=== PATIENT | female | born 1965 | race Hispanic/Latino ===

== ENCOUNTER 2021-03-22 18:34 | Emergency (ER) | payer MEDICAID ==
[2021-03-22] MEDS ORDERED: oxyCODONE /ACETAMINOPHEN 5-325MG TAB PO ONE (20:38)
[2021-03-22] MEDS ORDERED: predniSONE 20 MG TAB PO ONE (20:38)
[2021-03-22] MEDS ORDERED: ONDANSETRON 4 MG ODT TAB PO ONE (20:38)
--- NOTE | 2021-03-22 21:34 | XRay Report ---
EXAMINATION: XR hip 2-3V RT, INDICATION / CLINICAL INFORMATION: PAIN COMPARISON: None available. FINDINGS: BONES / JOINT(S): No acute fracture or subluxation. SOFT TISSUES: No significant abnormality. ADDITIONAL FINDINGS: None. IMPRESSION: No acute process. Signer Name: Roberto Ortiz MD Signed: 03/22/2021 9:30 PM Workstation Name: [id number]
--- NOTE | 2021-03-22 21:35 | XRay Report ---
RIGHT KNEE 3 VIEW(S) INDICATION / CLINICAL INFORMATION: PAIN COMPARISON: None available. FINDINGS: BONES / JOINT(S): No acute fracture or subluxation. Mild to moderate tricompartmental osteoarthritis of the knee. No significant joint effusion. SOFT TISSUES: No significant abnormality. ADDITIONAL FINDINGS: None. IMPRESSION: No acute osseous findings in the right knee. Signer Name: Roberto Ortiz MD Signed: 03/22/2021 9:30 PM Workstation Name: [id number]
--- NOTE | 2021-03-22 21:36 | XRay Report ---
Lumbar spine, 3 views HISTORY: Lumbar pain COMPARISON: None FINDINGS: There is mild right convex curvature of the lumbar spine. Alignment is normal. Severe disc space height loss at L5-S1, mild to moderate at other levels. Vertebral body heights are intact. No e vidence of fracture. IMPRESSION: Moderate lower lumbar spondylosis. No acute process. Signer Name: Roberto Ortiz MD Signed: 03/22/2021 9:31 PM Workstation Name: [id number]
--- NOTE | 2021-03-22 21:51 | Emergency Department Report ---
ED Back Pain/Injury HPI - General Chief Complaint: Back Pain/Injury Stated Complaint: BACK PAIN Source: patient, EMS Limitations: No Limitations - History of Present Illness Initial Comments: Patient is a 55-year-old female with a history of chronic low back pain due to degenerative lumbar disc disease, chronic osteoarthritis of the knees bilaterally who presented to the ED with complaint of acute exacerbation of her chronic low back pain after she slipped and fell down at a hotel bathtub about 3 months ago, and that the pain has been persistent, constant and especially worse with movement. Patient states that in the last 3 days, she has not been able to move much because of worsening pain. Patient states that she has been taking jqtr-orq-[id number] medications for pain having exhausted all her previously prescribed narcotic pain medications from pain clinic that she used to go to for her chronic back pain. Patient stated that she has previously taken Percocet 10 mg - 325 mg, MS Contin, gabapentin 800 mg for her chronic pain. Patient denies nausea and vomiting, chest pain, shortness of breath, heavy lifting, dizziness, syncope, seizures, dysuria, urinary frequency and urgency, fever, chills, abdominal pain, nausea and vomiting, vaginal bleeding, hematuria, numbness and tingling or weakness of lower extremities bilaterally or change in vision. MD Complaint: back pain, fall, other (Right hip and right knee pain) -: Gradual, month(s) (3) Similar Symptoms Previously: Yes (Chronic low back pain and chronic osteoarthritis) Place: home Radiation: right leg Severity: severe Severity scale (0 -10): 8 Quality: sharp, aching Consistency: constant Improves With: none Worsens With: movement, sitting upright, walking Context: turning/twisting, fall Associated Symptoms: denies other symptoms. denies: confusion, weakness, chest pain, difficulty walking, cough, difficulty urinating, diaphoresis, incontinence, constipation, headaches, abdominal pain, loss of appetite, malaise, nausea/vomiting, rash, seizure, shortness of breath, syncope Treatments Prior to Arrival: acetaminophen - Related Data Previous Rx's Medication Instructions Recorded Last Taken Type Acetaminophen [Tylenol] 500 mg PO Q6HR PRN #60 tablet 03/22/21 Unknown Rx Gabapentin 400 mg PO Q8HR #90 capsule 03/22/21 Unknown Rx methOCARBAMOL [Robaxin TAB] 500 mg PO BID #60 tab 03/22/21 Unknown Rx predniSONE [Deltasone] 20 mg PO QDAY #60 tab 03/22/21 Unknown Rx traMADoL [Ultram] 50 mg PO Q6HR PRN #10 tablet 03/22/21 Unknown Rx Allergies Allergy/AdvReac Type Severity Reaction Status Date / Time naproxen Allergy Unknown Verified 03/22/21 18:37 Penicillins Allergy Unknown Verified 03/22/21 18:37 ED Review of Systems ROS: Stated complaint: BACK PAIN Other details as noted in HPI Constitutional: denies: chills, fever Eyes: denies: eye pain, eye discharge, vision change ENT: denies: ear pain, throat pain Respiratory: denies: cough, shortness of breath, wheezing Cardiovascular: denies: chest pain, palpitations Endocrine: no symptoms reported Gastrointestinal: denies: abdominal pain, nausea, diarrhea Genitourinary: denies: urgency, dysuria, discharge Musculoskeletal: back pain (Low back pain), arthralgia (Right knee and right hip pain), myalgia. denies: joint swelling Skin: denies: rash, lesions Neurological: denies: headache, weakness, paresthesias Psychiatric: denies: anxiety, depression Hematological/Lymphatic: denies: easy bleeding, easy bruising ED Past Medical Hx - Past Medical History Previous Medical History?: Yes Hx Arthritis: Yes Additional medical history: Chronic low back pain - Medications Home Medications: Home Medications Medication Instructions Recorded Confirmed Last Taken Type Acetaminophen [Tylenol] 500 mg PO Q6HR PRN #60 tablet 03/22/21 Unknown Rx Gabapentin 400 mg PO Q8HR #90 capsule 03/22/21 Unknown Rx methOCARBAMOL [Robaxin TAB] 500 mg PO BID #60 tab 03/22/21 Unknown Rx predniSONE [Deltasone] 20 mg PO QDAY #60 tab 03/22/21 Unknown Rx traMADoL [Ultram] 50 mg PO Q6HR PRN #10 tablet 03/22/21 Unknown Rx ED Physical Exam - General Limitations: No Limitations General appearance: alert, in no apparent distress - Head Head exam: Present: atraumatic, normocephalic, normal inspection - Eye Eye exam: Present: normal appearance, PERRL, EOMI Pupils: Present: normal accommodation - ENT ENT exam: Present: normal exam, normal orophraynx, mucous membranes moist, TM's normal bilaterally, normal external ear exam - Neck Neck exam: Present: normal inspection, full ROM - Respiratory Respiratory exam: Present: normal lung sounds bilaterally. Absent: respiratory distress, wheezes, rales, stridor, chest wall tenderness, accessory muscle use, decreased breath sounds - Cardiovascular Cardiovascular Exam: Present: regular rate, normal rhythm, normal heart sounds. Absent: systolic murmur, diastolic murmur, rubs, gallop - GI/Abdominal GI/Abdominal exam: Present: soft, normal bowel sounds. Absent: distended, tenderness, guarding, hyperactive bowel sounds, hypoactive bowel sounds, organ omegaly - Extremities Exam Extremities exam: Present: normal inspection, full ROM, tenderness (Palpable right hip and right knee tenderness), normal capillary refill. Absent: pedal edema, joint swelling, calf tenderness - Back Exam Back exam: Present: normal inspection, full ROM, tenderness (Palpable lumbosacral paraspinal musculoskeletal tenderness; palpable lumbar vertebral tenderness), muscle spasm, paraspinal tenderness, vertebral tenderness. Absent: CVA tenderness (R), CVA tenderness (L), rash noted - Neurological Exam Neurological exam: Present: alert, oriented X3, CN II-XII intact, reflexes normal, other (Gait not tested, due to patient pain) - Psychiatric Psychiatric exam: Present: normal affect, normal mood - Skin Skin exam: Present: warm, dry, intact, normal color. Absent: rash, cyanosis, erythema, urticaria ED Course Vital Signs 03/22/21 03/22/21 18:34 20:51 Temperature 98.1 F Pulse Rate 92 H Respiratory 18 16 Rate Blood Pressure 142/86 [Left] O2 Sat by Pulse 98 Oximetry ED Medical Decision Making - Radiology Data Radiology results: report reviewed, image reviewed [address] [address] XRay Report Signed Patient: RATNA CARDONA MR#: [id number] : 1965 Acct:[id number] Age/Sex: 55 / F ADM Date: 03/22/21 Loc: ED Attending Dr: Ordering Physician: KURT POLLACK Date of Service: 03/22/21 Procedure(s): XR spine lumbosacral 2-3V Accession Number(s): [id number] cc: KURT POLLACK Fluoro Time In Minutes: Lumbar spine, 3 views HISTORY: Lumbar pain COMPARISON: None FINDINGS: There is mild right convex curvature of the lumbar spine. Alignment is normal. Severe disc space height loss at L5-S1, mild to moderate at other levels. Vertebral body heights are intact. No evidence of fracture. IMPRESSION: Moderate lower lumbar spondylosis. No acute process. Signer Name: Pam Hicks MD Signed: 03/22/2021 9:31 PM Workstation Name: [id number] Transcribed By: JS Dictated By: PAM HICKS MD Electronically Authenticated By: PAM HICKS MD Signed Date/Time: 03/22/212130 DD/ 29 TD/TT: [facility] [address] [place] [address] XRay Report Signed Patient: RATNA CARDONA MR#: [id number] : 1965 Acct:[id number] Age/Sex: 55 / F ADM Date: 03/22/21 Loc: ED Attending Dr: Ordering Physician: KURT POLLACK Date of Service: 03/22/21 Procedure(s): XR knee 3V RT Accession Number(s): [id number] cc: KURT POLLACK Fluoro Time In Minutes: RIGHT KNEE 3 VIEW(S) INDICATION / CLINICAL INFORMATION: PAIN COMPARISON: None available. FINDINGS: BONES / JOINT(S): No acute fracture or subluxation. Mild to moderate tricompartmental osteoarthritis of the knee. No significant joint effusion. SOFT TISSUES: No significant abnormality. ADDITIONAL FINDINGS: None. IMPRESSION: No acute osseous findings in the right knee. Signer Name: Pam Hicks MD Signed: 03/22/2021 9:30 PM Workstation Name: [id number] Transcribed By: TONY Dictated By: PAM HICKS MD Electronically Authenticated By: PAM HICKS MD Signed Date/Time: 03/22/212129 DD/ 29 TD/TT: [address] [address] XRay Report Signed Patient: RATNA CARDONA MR#: [id number] : 1965 Acct:[id number] Age/Sex: 55 / F ADM Date: 03/22/21 Loc: ED Attending Dr: Ordering Physician: KURT POLLACK Date of Service: 03/22/21 Procedure(s): XR hip 2-3V RT Accession Number(s): [id number] cc: KURT POLLACK Fluoro Time In Minutes: EXAMINATION: XR hip 2-3V RT, INDICATION / CLINICAL INFORMATION: PAIN COMPARISON: None available. FINDINGS: BONES / JOINT(S): No acute fracture or subluxation. SOFT TISSUES: No significant abnormality. ADDITIONAL FINDINGS: None. IMPRESSION: No acute process. Signer Name: Pam Hicks MD Signed: 03/22/2021 9:30 PM Workstation Name: [id number] Transcribed By: TONY Dictated By: PAM HICKS MD Electronically Authenticated By: PAM HICKS MD Signed Date/Time: 03/22/212129 DD/ 28 TD/TT: - Medical Decision Making This is a 55-year-old female with a history of chronic low back pain due to degenerative lumbar disc disease, chronic osteoarthritis of the knees bilaterally who presented to the ED with complaint of acute exacerbation of her chronic low back pain after she slipped and fell down at a hotel bathtub about 3 months ago, and that the pain has been persistent, constant and especially worse with movement. Patient states that in the last 3 days, she has not been able to move much because of worsening pain. Patient states that she has been taking ahst-jrz-cpzotgy medications for pain having exhausted all her previously prescribed narcotic pain medications from pain clinic that she used to go to for her chronic back pain. Patient stated that she has previously taken Percocet 10 mg - 325 mg, MS Contin, gabapentin 800 mg for her chronic pain. In the ED, patient is alert and oriented x3 and is not in any distress. Patient was treated in the ED for pain, and right knee x-ray showed mild to moderate tricompartmental osteoarthritis of the knee. No significant joint effusion. The L-spine x-ray showed a mild right convex curvature of the lumbar spine. Alignment is normal. Severe disc space height loss at L5-S1, mild to moderate at other levels. Vertebral body heights are intact. No evidence of fracture. Right hip x-ray showed no acute abnormalities, fractures or subluxations. Patient was discharged home on medications and advised to follow-up with her primary care physician in 5 to 7 days for reevaluation. Patient was advised to return to the ED immediately if your symptoms get worse. - Differential Diagnosis Chronic pain; chronic osteoarthritis, chronic back pain; muscle spasm Critical care attestation.: If time is entered above; I have spent that time in minutes in the direct care of this critically ill patient, excluding procedure time. ED Disposition Clinical Impression: Spasm of muscle of lower back, Acute exacerbation of chronic low back pain, Chronic osteoarthritis Disposition: 01 HOME / SELF CARE / HOMELESS Is pt being admited?: No Does the pt Need Aspirin: No Condition: Stable Instructions: Muscle Cramps and Spasms, Dlhz-rx-Ybjo, Chronic Back Pain, Cnzl-tk-Reya, Arthritis, Azga-or-Fkkv Additional Instructions: All imaging reports were reviewed and are all nonactionable except for chronic degenerative lumbar disc disease as well as chronic degenerative joint disease of the right knee. There is no acute fractures or subluxations. Therefore take medications with food, drink plenty fluids and follow-up with your primary care physician in 7 to 10 days for reevaluation. Return to the ED immediately if symptoms get worse. Prescriptions: Acetaminophen [Tylenol] 500 mg PO Q6HR PRN #60 tablet PRN Reason: Pain , Severe (7-10) predniSONE [Deltasone] 20 mg PO QDAY #60 tab Gabapentin 400 mg PO Q8HR #90 capsule methOCARBAMOL [Robaxin TAB] 500 mg PO BID #60 tab traMADoL [Ultram] 50 mg PO Q6HR PRN #10 tablet PRN Reason: Pain Referrals: [facility] [Provider Group] - 7-10 days Time of Disposition: 21:57 Print Language: MONTENEGRIN
[2021-03-22 23:04] VITALS: BP 153/87
== END 2021-03-22 22:58 | disposition home or self-care (01) ==
LOC: ED 18:34
DX: M62.830 Muscle spasm of back (principal); M54.50 Low back pain, unspecified; M19.90 Unspecified osteoarthritis, unspecified site; Z88.6 Allergy status to analgesic agent; Z88.0 Allergy status to penicillin
CPT/HCPCS: 72100; J3490; J7512; Q0162

== ENCOUNTER 2021-03-23 01:55 | Inpatient (IN) | payer MEDICAID ==
[2021-03-23] MEDS ORDERED: ASPIRIN 325 MG TAB PO ONE (02:08)
[2021-03-23 02:55] LABS: Basophils % (Auto) 0.2 % (0.0-1.8); Eosinophils % (Auto) 0.2 % (0.0-4.3); Hematocrit 44.3 % (30.3-42.9); Hemoglobin 14.3 gm/dl (10.1-14.3); Lymphocytes # (Auto) 1.2 K/mm3 (1.2-5.4); Lymphocytes % (Auto) 12.3 % (13.4-35.0); Mean Corpuscular HGB Conc 32 % (30-34); Mean Corpuscular Volume 90 fl (79-97); Monocytes # (Auto) 0.1 K/mm3 (0.0-0.8); Platelet Count 285 K/mm3 (140-440); Red Blood Count 4.93 M/mm3 (3.65-5.03)
--- NOTE | 2021-03-23 03:04 | XRay Report ---
CHEST 2 VIEWS INDICATION / CLINICAL INFORMATION: CHEST PAIN. COMPARISON: None available. FINDINGS: SUPPORT DEVICES: None. HEART / MEDIASTINUM: No significant abnormality. LUNGS / PLEURA: No acute airspace disease. Lungs are slightly hyperinflated. No pneumothorax. ADDITIONAL FINDINGS: No significant additional findings. IMPRESSION: 1. Hyperinflated lungs but no acute findings. Signer Name: Reynaldo Hendrickson MD Signed: 03/23/2021 3:00 AM Workstation Name: [id number]
[2021-03-23 03:09] LABS: Alanine Aminotransferase 74 units/L (7-56); Blood Urea Nitrogen 11 mg/dL (7-17); Calcium 9.1 mg/dL (8.4-10.2); Hemolysis Index 4
[2021-03-23 03:10] LABS: BUN/Creatinine Ratio 18
[2021-03-23] MEDS ORDERED: ONDANSETRON 4 MG ODT TAB PO ONE (03:18)
[2021-03-23] MEDS ORDERED: HYDROmorphone 1 MG/1 ML INJ IM ONE (03:18)
[2021-03-23] MEDS ORDERED: GABAPENTIN 300 MG CAP PO ONE (03:19)
--- NOTE | 2021-03-23 04:01 | Cat Scan Report ---
CT LUMBAR SPINE WITHOUT CONTRAST INDICATION / CLINICAL INFORMATION: back pain. TECHNIQUE: Axial CT images were obtained through the lumbar spine. Sagittal and coronal reformatted i mages were produced. All CT scans at this location are performed using CT dose reduction for ALARA by means of automated exposure control. COMPARISON: Radiograph dated 03/22/21 FINDINGS: VERTEBRAE: No significant abnormality. ALIGNMENT: No significant abnormality. DISC SPACES: Moderate discogenic spondylosis and endplate sclerosis at L5-S1. Mild circumferential / posterior disc bulges at L2-3, L3-4, and L4-5. FACET JOINTS: No significant abnormality. SPINAL CANAL: No significant abnormality. SACRUM:No significant abnormality of the visualized sacrum. PARASPINAL SOFT TISSUES: No significant abnormality. ADDITIONAL FINDINGS: None. IMPRESSION: 1. No acute abnormality. 2. Moderate discogenic spondylosis at L5-S1. 3. Mild multilevel circumferential/posterior disc bulges. Signer Name: Reynaldo Hendrickson MD Signed: 03/23/2021 3:57 AM Workstation Name: [id number]
--- NOTE | 2021-03-23 04:27 | Emergency Department Report ---
ED Chest Pain HPI - General Chief Complaint: Chest Pain Stated Complaint: CHESTPAIN Time Seen by Provider: 03/23/21 02:48 Source: patient Mode of arrival: Wheelchair Limitations: No Limitations - History of Present Illness Initial Comments: 55-year female with a history of chronic back pain secondary to multiple herniated disc and osteoarthritis presents to the hospital planing of acute on chronic exacerbation of her back pain as well as ongoing chest pain. Patient apparently has been having worsening back pain since she slipped and fell at a hotel bathtub approximately 3 months ago. Patient has a history of chronic pain with pain management and recently relocated here from [place]. She does not currently have a local physician. In the past she took Percocet 10, MS Contin, and gabapentin 800 mg for her chronic pain. She has not had these medications in several months. She states she is having ambulating secondary to pain and has chronic right leg numbness with weakness from the knee down to the foot which is unchanged and has been recommended for surgery in the past. Patient also states she has occasional urinary incontinence which has been ongoing x1 year.s patient also states that she has anxiety and has been experiencing inso mnia recently only sleeping 2 to 3 hours at night. She does not currently have her previously prescribed Cymbalta and has been treated with Xanax in the past. She is unsure of her left-sided chest tightness is secondary to anxiety or cardiac issues. She denies previous history of cardiac disease or stress test in the past. She does smoke cigarettes and her father had an [place] at age 60. She denies shortness of breath, nausea, vomiting, or diaphoresis. pt refused asa sating it makes her stomach hurt (adverse reaction), no hx of allergy to med Severity scale (0 -10): 7 - Related Data Previous Rx's Medication Instructions Recorded Last Taken Type Acetaminophen [Tylenol] 500 mg PO Q6HR PRN #60 tablet 03/22/21 Unknown Rx Gabapentin 400 mg PO Q8HR #90 capsule 03/22/21 Unknown Rx methOCARBAMOL [Robaxin TAB] 500 mg PO BID #60 tab 03/22/21 Unknown Rx predniSONE [Deltasone] 20 mg PO QDAY #60 tab 03/22/21 Unknown Rx traMADoL [Ultram] 50 mg PO Q6HR PRN #10 tablet 03/22/21 Unknown Rx Allergies Allergy/AdvReac Type Severity Reaction Status Date / Time aspirin Allergy Unknown Verified 03/23/21 03:32 naproxen Allergy Unknown Verified 03/22/21 18:37 Penicillins Allergy Unknown Verified 03/22/21 18:37 Heart Score - HEART Score History: Slightly suspicious EKG: Non-specific Age: 45-65 Risk factors: 1-2 risk factors Troponin: < normal limit HEART Score: 3 - EKG Read Time Time EKG Completed: 02:22 EKG Read Time: 02:41 ED Review of Systems ROS: Stated complaint: CHESTPAIN Other details as noted in HPI Comment: All other systems reviewed and negative ED Past Medical Hx - Past Medical History Previous Medical History?: Yes Hx of Cancer: Yes (RIGHT BREAST treated with mastectomy) Hx Arthritis: Yes Hx Psychiatric Treatment: Yes (ANXIETY) Additional medical history: Chronic low back pain - Surgical History Past Surgical History?: Yes Additional Surgical History: TONSILLECTOMY. RIGHT MASTESTOMY - Social History Smoking Status: Current Every Day Smoker Substance Use Type: Marijuana - Medications Home Medications: Home Medications Medication Instructions Recorded Confirmed Last Taken Type Acetaminophen [Tylenol] 500 mg PO Q6HR PRN #60 tablet 03/22/21 Unknown Rx Gabapentin 400 mg PO Q8HR #90 capsule 03/22/21 Unknown Rx methOCARBAMOL [Robaxin TAB] 500 mg PO BID #60 tab 03/22/21 Unknown Rx predniSONE [Deltasone] 20 mg PO QDAY #60 tab 03/22/21 Unknown Rx traMADoL [Ultram] 50 mg PO Q6HR PRN #10 tablet 03/22/21 Unknown Rx ED Physical Exam - General Limitations: No Limitations - Other Other exam information: General: No acute distress Head: Atraumatic Eyes: normal appearance ENT: Moist mucous membranes Neck: Normal appearance, no midline tenderness Chest: Clear to auscultation bilaterally, left chest wall tenderness CV: Regular rate and rhythm Abdomen: Soft, normal bowel sounds, nontender, nondistended, no rebound or guarding Back: Normal inspection, diffuse lumbar and paraspinal muscle tenderness Extremity: Normal inspection Neuro: Alert O x 3, no facial asymmetry, speech clear, foot drop with limited ankle dorsiflexion and decreased sensation distal to the knee present is chronic as per patient) Psych: Appropriate behavior Skin: No rash ED Course Vital Signs 03/23/21 01:58 Temperature 98.2 F Pulse Rate 75 Respiratory 18 Rate Blood Pressure 133/76 O2 Sat by Pulse 96 Oximetry KEVON score - Kevon Score Age > 65: (0) No Aspirin use within the Past 7 Days: (0) No 3 or more CAD Risk Factors: (0) No 2 or more Angina events in past 24 hrs: (1) Yes Known CAD with more than 50% Stenosis: (0) No Elevated Cardiac Markers: (0) No ST Deviation Greater than 0.5mm: (0) No KEVON Score: 1 ED Medical Decision Making - Lab Data Result diagrams: 03/23/21 02:44 03/23/21 02:44 Lab Results 03/23/21 03/23/21 Range/Units 02:44 02:44 WBC 10.0 (4.5-11.0) K/mm3 RBC 4.93 (3.65-5.03) M/mm3 Hgb 14.3 (10.1-14.3) gm/dl Hct 44.3 H (30.3-42.9) % MCV 90 (79-97) fl MCH 29 (28-32) pg MCHC 32 (30-34) % RDW 14.0 (13.2-15.2) % Plt Count 285 (140-440) K/mm3 Lymph % (Auto) 12.3 L (13.4-35.0) % [place] % (Auto) 1.0 (0.0-7.3) % Eos % (Auto) 0.2 (0.0-4.3) % Baso % (Auto) 0.2 (0.0-1.8) % Lymph # (Auto) 1.2 (1.2-5.4) K/mm3 [place] # (Auto) 0.1 (0.0-0.8) K/mm3 Eos # (Auto) 0.0 (0.0-0.4) K/mm3 Baso # (Auto) 0.0 (0.0-0.1) K/mm3 Seg Neutrophils % 86.3 H (40.0-70.0) % Seg Neutrophils # 8.6 H (1.8-7.7) K/mm3 Sodium 137 (137-145) mmol/L Potassium 4.1 (3.6-5.0) mmol/L Chloride 98.8 (98-107) mmol/L Carbon Dioxide 24 (22-30) mmol/L Anion Gap 18 mmol/L BUN 11 (7-17) mg/dL Creatinine 0.6 (0.6-1.2) mg/dL Estimated GFR > 60 ml/min BUN/Creatinine Ratio 18 % Glucose 177 H (65-100) mg/dL Calcium 9.1 (8.4-10.2) mg/dL Total Bilirubin 0.70 (0.1-1.2) mg/dL AST 41 H (5-40) units/L ALT 74 H (7-56) units/L Alkaline Phosphatase 110 (35-129) units/L Troponin T < 0.010 (0.00-0.029) ng/mL Total Protein 8.1 (6.3-8.2) g/dL Albumin 4.0 (3.9-5) g/dL Albumin/Globulin Ratio 1.0 % - EKG Data -: EKG Interpreted by Me (LVH, biatrial enlargement, old anterior infarct) EKG shows normal: sinus rhythm, intervals (QTC 518), QRS complexes (QRS duration 135 prolonged), ST-T waves (No STEMI, lateral T wave inversion) Rate: normal (71) - EKG Data When compared to previous EKG there are: previous EKG unavailable - Radiology Data Radiology results: report reviewed CHEST 2 VIEWS INDICATION / CLINICAL INFORMATION: CHEST PAIN. COMPARISON: None available. FINDINGS: SUPPORT DEVICES: None. HEART / MEDIASTINUM: No significant abnormality. LUNGS / PLEURA: No acute airspace disease. Lungs are slightly hyperinflated. No pneumothorax. ADDITIONAL FINDINGS: No significant additional findings. IMPRESSION: 1. Hyperinflated lungs but no acute findings. CT LUMBAR SPINE WITHOUT CONTRAST INDICATION / CLINICAL INFORMATION: back pain. TECHNIQUE: Axial CT images were obtained through the lumbar spine. Sagittal and coronal reformatted images were produced. All CT scans at this location are performed using CT dose reduction for ALARA by means of automated exposure control. COMPARISON: Radiograph dated 03/22/21 FINDINGS: VERTEBRAE: No significant abnormality. ALIGNMENT: No significant abnormality. DISC SPACES: Moderate discogenic spondylosis and endplate sclerosis at L5-S1. Mild circumferential / posterior disc bulges at L2-3, L3-4, and L4-5. FACET JOINTS: No significant abnormality. SPINAL CANAL: No significant abnormality. SACRUM:No significant abnormality of the visualized sacrum. PARASPINAL SOFT TISSUES: No significant abnormality. ADDITIONAL FINDINGS: None. IMPRESSION: 1. No acute abnormality. 2. Moderate discogenic spondylosis at L5-S1. 3. Mild multilevel circumferential/posterior disc bulges. - Medical Decision Making 55-year-old female smoker with positive family history of CAD presents to the hospital complaints of left-sided chest stent since without previous history of cardiac work-up. Patient has chronic back pain and appears to have some social issues and lack of follow-up as well. Patient has a EKG that had some abnormalities without previous EKG for comparison. Troponin is negative in the ED. Patient will be admitted to the hospital for further cardiac work-up. CT lumbar spine does not show evidence of acute injury and patient has chronic unchanged right leg lower deficits and stress urinary incontinence symptoms Critical Care Time: No Critical care attestation.: If time is entered above; I have spent that time in minutes in the direct care of this critically ill patient, excluding procedure time. ED Disposition Clinical Impression: Chest pain, Acute exacerbation of chronic low back pain, Lumbar herniated disc, Chronic focal neurological deficit Disposition: ADMITTED INPATIENT Is pt being admited?: Yes Condition: Stable Time of Disposition: 05:04 (Dr Randolph)
[2021-03-23] MEDS ORDERED: SODIUM CHLORIDE 0.9% 1000 ML 1,000 ML ONE (04:59)
[2021-03-23] MEDS ORDERED: NITROGLYCERIN 0.4 MG TAB SUBL SL PRN (05:21)
[2021-03-23] MEDS ORDERED: ACETAMINOPHEN 325 MG TAB PO PRN (05:21)
--- NOTE | 2021-03-23 05:30 | History and Physical Report ---
History of Present Illness Date of examination: 03/23/21 Date of admission: 03/23/21 Chief complaint: Chest pain History of present illness: 55-year female with a history of chronic back pain secondary to multiple herniated disc and osteoarthritis was brought to the emergency room because of acute on chronic exacerbation of her back pain as well as ongoing chest pain. Patient apparently has been having worsening back pain since she slipped and fell at a hotel bathtub approximately 3 months ago. Patient has a history of chronic pain with pain management and recently relocated here from [place]. She does not currently have a local physician. In the past she took Percocet 10, MS Contin, and gabapentin 800 mg for her chronic pain. She has not had these medi cations in several months. She states she is having ambulating secondary to pain and has chronic right leg numbness with weakness from the knee down to the foot which is unchanged and has been recommended for surgery in the past. Patient also states she has occasional urinary incontinence which has been ongoing x1 year.s patient also states that she has anxiety and has been experiencing insomnia recently only sleeping 2 to 3 hours at night. She does not currently have her previously prescribed Cymbalta and has been treated with Xanax in the past. She is unsure of her left-sided chest tightness is secondary to anxiety or cardiac issues. She denies previous history of cardiac disease or stress test in the past. She does smoke cigarettes and her father had an [place] at age 60. She denies shortness of breath, nausea, vomiting, or diaphoresis. Patient has a EKG that had some abnormalities without previous EKG for comparison. Troponin is negative in the ED. Patient will be admitted to the hospital for further cardiac work-up. CT lumbar spine does not show evidence of acute injury and patient has chronic unchanged right leg lower deficits Past History Past Medical History: arthritis, cancer, other (Anxiety breast cancer right breast treated with mastectomy, chronic low back pain) Medications and Allergies Allergies Allergy/AdvReac Type Severity Reaction Status Date / Time aspirin Allergy Unknown Verified 03/23/21 03:32 naproxen Allergy Unknown Verified 03/22/21 18:37 Penicillins Allergy Unknown Verified 03/22/21 18:37 Home Medications Medication Instructions Recorded Confirmed Last Taken Type Acetaminophen [Tylenol] 500 mg PO Q6HR PRN #60 tablet 03/22/21 Unknown Rx Gabapentin 400 mg PO Q8HR #90 capsule 03/22/21 Unknown Rx methOCARBAMOL [Robaxin TAB] 500 mg PO BID #60 tab 03/22/21 Unknown Rx predniSONE [Deltasone] 20 mg PO QDAY #60 tab 03/22/21 Unknown Rx traMADoL [Ultram] 50 mg PO Q6HR PRN #10 tablet 03/22/21 Unknown Rx Review of Systems All systems: negative Cardiovascular: chest pain Musculoskeletal: other (Chronic low back pain) Psychiatric: anxiety, depression, other (Anxiety) Exam - Constitutional Vitals: Temp Pulse Resp BP Pulse Ox 98.2 F 75 18 133/76 96 03/23/21 01:58 03/23/21 01:58 03/23/21 01:58 03/23/21 01:58 03/23/21 01:58 General appearance: Present: no acute distress, well-nourished - EENT Eyes: Present: PERRL ENT: hearing intact, clear oral mucosa - Neck Neck: Present: supple, normal ROM - Respiratory Respiratory effort: normal Respiratory: bilateral: diminished - Cardiovascular Heart Sounds: Present: S1 & S2. Absent: rub, click - Extremities Extremities: pulses symmetrical, No edema Peripheral Pulses: within normal limits - Abdominal General gastrointestinal: Present: soft, non-tender, non-distended, normal bowel sounds Female genitourinary: Present: normal - Integumentary Integumentary: Present: clear, warm, dry - Musculoskeletal Musculoskeletal: gait normal, strength equal bilaterally - Psychiatric Psychiatric: appropriate mood/affect, intact judgment & insight - Neurologic Neurologic: CNII-XII intact, moves all extremities HEART Score - HEART Score EKG: Non-specific Age: 45-65 Risk factors: 1-2 risk factors Troponin: Troponin T < 0.010 ng/mL (0.00-0.029) 03/23/21 02:44 Troponin: < normal limit Results - Labs CBC & Chem 7: 03/23/21 02:44 03/23/21 02:44 Labs: Laboratory Last Values WBC 10.0 K/mm3 (4.5-11.0) 03/23/21 02:44 RBC 4.93 M/mm3 (3.65-5.03) 03/23/21 02:44 Hgb 14.3 gm/dl (10.1-14.3) 03/23/21 02:44 Hct 44.3 % (30.3-42.9) H 03/23/21 02:44 MCV 90 fl (79-97) 03/23/21 02:44 MCH 29 pg (28-32) 03/23/21 02:44 MCHC 32 % (30-34) 03/23/21 02:44 RDW 14.0 % (13.2-15.2) 03/23/21 02:44 Plt Count 285 K/mm3 (140-440) 03/23/21 02:44 Lymph % (Auto) 12.3 % (13.4-35.0) L 03/23/21 02:44 [place] % (Auto) 1.0 % (0.0-7.3) 03/23/21 02:44 Eos % (Auto) 0.2 % (0.0-4.3) 03/23/21 02:44 Baso % (Auto) 0.2 % (0.0-1.8) 03/23/21 02:44 Lymph # (Auto) 1.2 K/mm3 (1.2-5.4) 03/23/21 02:44 [place] # (Auto) 0.1 K/mm3 (0.0-0.8) 03/23/21 02:44 Eos # (Auto) 0.0 K/mm3 (0.0-0.4) 03/23/21 02:44 Baso # (Auto) 0.0 K/mm3 (0.0-0.1) 03/23/21 02:44 Seg Neutrophils % 86.3 % (40.0-70.0) H 03/23/21 02:44 Seg Neutrophils # 8.6 K/mm3 (1.8-7.7) H 03/23/21 02:44 Sodium 137 mmol/L (137-145) 03/23/21 02:44 Potassium 4.1 mmol/L (3.6-5.0) 03/23/21 02:44 Chloride 98.8 mmol/L (98-107) 03/23/21 02:44 Carbon Dioxide 24 mmol/L (22-30) 03/23/21 02:44 Anion Gap 18 mmol/L 03/23/21 02:44 BUN 11 mg/dL (7-17) 03/23/21 02:44 Creatinine 0.6 mg/dL (0.6-1.2) 03/23/21 02:44 Estimated GFR > 60 ml/min 03/23/21 02:44 BUN/Creatinine Ratio 18 % 03/23/21 02:44 Glucose 177 mg/dL (65-100) H 03/23/21 02:44 Calcium 9.1 mg/dL (8.4-10.2) 03/23/21 02:44 Total Bilirubin 0.70 mg/dL (0.1-1.2) 03/23/21 02:44 AST 41 units/L (5-40) H 03/23/21 02:44 ALT 74 units/L (7-56) H 03/23/21 02:44 Alkaline Phosphatase 110 units/L (35-129) 03/23/21 02:44 Troponin T < 0.010 ng/mL (0.00-0.029) 03/23/21 02:44 Total Protein 8.1 g/dL (6.3-8.2) 03/23/21 02:44 Albumin 4.0 g/dL (3.9-5) 03/23/21 02:44 Albumin/Globulin Ratio 1.0 % 03/23/21 02:44 - Imaging and Cardiology Chest x-ray: report reviewed Assessment and Plan VTE prophylaxis?: Chemical Plan of care discussed with patient/family: Yes - Patient Problems (1) Acute coronary syndrome Current Visit: Yes Status: Acute Plan to address problem: Admit the patient to the medical telemetry. Plavix 75 mg p.o. daily. Lipitor 40 mg p.o. daily. Nitroglycerin as needed. Morphine 2 mg IV every 4 hours as needed. Due to the serial cardiac enzyme. Echocardiogram. Cardiology evaluation for abnormal EKG and chest pain (2) Acute exacerbation of chronic low back pain Current Visit: Yes Status: Acute Plan to address problem: Tylenol 650 mg p.o. every 6 hours as needed. Morphine 2 mg IV every 4 hours as needed. Dilaudid 0.5 mg IV every 3 hours as needed. (3) Lumbar herniated disc Current Visit: Yes Status: Acute Plan to address problem: Morphine 2 mg IV every 4 hours as needed. Dilaudid 0.5 mg IV every 3 hours as needed. Outpatient follow-up with orthopedic for back surgery (4) Chronic osteoarthritis Current Visit: No Status: Acute Plan to address problem: Morphine 2 mg IV every 4 hours as needed. Dilaudid 0.5 mg IV every 3 hours as needed. Outpatient follow-up with orthopedic for back surgery (5) Depression Current Visit: Yes Status: Acute Plan to address problem: We continue the home medication. We will monitor the patient closely (6) DVT prophylaxis Current Visit: Yes Status: Acute Plan to address problem: Heparin 5000 units subcu every 8 hours for DVT prophylaxis. Protonix 40 mg p.o. daily for GI prophylaxis. Patient is a full code
[2021-03-23 05:45] LABS: Basophils % (Auto) 0.2 % (0.0-1.8); Eosinophils % (Auto) 0.1 % (0.0-4.3); Hematocrit 42.1 % (30.3-42.9); Lymphocytes # (Auto) 1.4 K/mm3 (1.2-5.4); Lymphocytes % (Auto) 15.2 % (13.4-35.0); Mean Corpuscular HGB Conc 33 % (30-34); Mean Corpuscular Volume 90 fl (79-97); Monocytes # (Auto) 0.2 K/mm3 (0.0-0.8); Monocytes % (Auto) 1.6 % (0.0-7.3); Platelet Count 256 K/mm3 (140-440); Red Blood Count 4.68 M/mm3 (3.65-5.03); Red Cell Distribution Width 13.9 % (13.2-15.2)
[2021-03-23] MEDS: HEPARIN 5,000 UNIT/1 ML VIAL SUB-Q SCH ×3 (06:00→22:09)
[2021-03-23 06:06] LABS: Blood Urea Nitrogen 11 mg/dL (7-17); Calcium 8.9 mg/dL (8.4-10.2); Hemolysis Index 1
[2021-03-23 06:16] LABS: BUN/Creatinine Ratio 18
[2021-03-23] MEDS: MORPHINE 4 MG/1 ML INJ IV PRN ×3 (08:49→22:23)
[2021-03-23] MEDS: PANTOPRAZOLE 40 MG TAB PO SCH (09:46)
[2021-03-23] MEDS: CLOPIDOGREL 75 MG TAB PO SCH (09:46)
--- NOTE | 2021-03-23 11:59 | Consultation ---
History of Present Illness Consult date: 03/23/21 Requesting physician: DEEDEE VIRGEN Consult reason: chest pain History of present illness: She has a history of lumbar spine DJD. She claims that she slipped in the bathtub and fell about three months ago, exacerbating her chronic low back pain. Over the past two weeks, she has been experiencing intermittent substernal chest tightness as well as soreness.There is no associated nausea, vomiting, diaphoresis, or dyspnea. Past History Past Medical History: arthritis (DJD Lumbar spine.), other (Anxiety breast cancer right breast treated with mastectomy, chronic low back pain) Past Surgical History: Other (Bile duct surgery and ovarian cystectomy.) Social history: smoking. denies: alcohol abuse Family history: CAD (Her father of acute myocardial infarction at 60 years old.) Medications and Allergies Allergies Allergy/AdvReac Type Severity Reaction Status Date / Time aspirin Allergy Unknown Verified 03/23/21 03:32 naproxen Allergy Unknown Verified 03/22/21 18:37 Penicillins Allergy Unknown Verified 03/22/21 18:37 Home Medications Medication Instructions Recorded Confirmed Last Taken Type Acetaminophen [Tylenol] 500 mg PO Q6HR PRN #60 tablet 03/22/21 Unknown Rx Gabapentin 400 mg PO Q8HR #90 capsule 03/22/21 Unknown Rx methOCARBAMOL [Robaxin TAB] 500 mg PO BID #60 tab 03/22/21 Unknown Rx predniSONE [Deltasone] 20 mg PO QDAY #60 tab 03/22/21 Unknown Rx traMADoL [Ultram] 50 mg PO Q6HR PRN #10 tablet 03/22/21 Unknown Rx Active Meds: Active Medications Acetaminophen (Acetaminophen 325 Mg Tab) 650 mg PO Q6H PRN PRN Reason: Pain, Mild (1-3) Atorvastatin Calcium (Atorvastatin 40 Mg Tab) 40 mg PO QHS THIEN Clopidogrel Bisulfate (Clopidogrel 75 Mg Tab) 75 mg PO QDAY [facility] Last Admin: 03/23/21 09:46 Dose: 75 mg Heparin Sodium (Porcine) (Heparin 5,000 Unit/1 Ml Vial) 5,000 unit SUB-Q Q8HR THIEN Last Admin: 03/23/21 06:00 Dose: 5,000 unit Morphine Sulfate (Morphine 4 Mg/1 Ml Inj) 2 mg IV Q5MIN PRN PRN Reason: Chest Pain unrelieved by NTG Last Admin: 03/23/21 08:49 Dose: 2 mg Nitroglycerin (Nitroglycerin 0.4 Mg Tab Subl) 0.4 mg SL Q5M PRN PRN Reason: Chest Pain Pantoprazole Sodium (Pantoprazole 40 Mg Tab) 40 mg PO QDAY THIEN Last Admin: 03/23/21 09:46 Dose: 40 mg Sodium Chloride (Sodium Chloride 0.9% 10 Ml Flush Syringe) 10 ml IV PRN PRN PRN Reason: LINE FLUSH Tramadol HCl (Tramadol 50 Mg Tab) 50 mg PO Q6H PRN PRN Reason: Pain, Moderate (4-6) Review of Systems Constitutional: no fever, no chills Ears, nose, mouth and throat: no ear pain, no ear discharge, no sore throat Cardiovascular: chest pain, no palpitations, no lightheadedness, no shortness of breath Respiratory: no cough, no hemoptysis Gastrointestinal: no abdominal pain, no nausea, no vomiting, no diarrhea, no c onstipation Rectal: no pain, no bleeding Musculoskeletal: low back pain Integumentary: no rash, no pruritis Neurological: no weakness, no parathesias, no headaches Endocrine: no cold intolerance, no heat intolerance Hematologic/Lymphatic: no easy bruising, no easy bleeding Allergic/Immunologic: no urticaria, no wheezing Physical Examination Vital Signs Temp Pulse Resp BP Pulse Ox 98.2 F 75 18 133/76 96 03/23/21 01:58 03/23/21 01:58 03/23/21 01:58 03/23/21 01:58 03/23/21 01:58 Results 03/23/21 05:29 03/23/21 05:29 Cardiac Enzymes 03/23/21 Range/Units 02:44 AST 41 H (5-40) units/L CBC 03/23/21 03/23/21 Range/Units 02:44 05:29 WBC 10.0 9.2 (4.5-11.0) K/mm3 RBC 4.93 4.68 (3.65-5.03) M/mm3 Hgb 14.3 14.0 (10.1-14.3) gm/dl Hct 44.3 H 42.1 (30.3-42.9) % Plt Count 285 256 (140-440) K/mm3 Lymph # (Auto) 1.2 1.4 (1.2-5.4) K/mm3 [place] # (Auto) 0.1 0.2 (0.0-0.8) K/mm3 Eos # (Auto) 0.0 0.0 (0.0-0.4) K/mm3 Baso # (Auto) 0.0 0.0 (0.0-0.1) K/mm3 Comprehensive Metabolic Panel 03/23/21 03/23/21 Range/Units 02:44 05:29 Sodium 137 141 (137-145) mmol/L Potassium 4.1 4.1 (3.6-5.0) mmol/L Chloride 98.8 102.4 (98-107) mmol/L Carbon Dioxide 24 23 (22-30) mmol/L BUN 11 11 (7-17) mg/dL Creatinine 0.6 0.6 (0.6-1.2) mg/dL Glucose 177 H 114 H (65-100) mg/dL Calcium 9.1 8.9 (8.4-10.2) mg/dL AST 41 H (5-40) units/L ALT 74 H (7-56) units/L Alkaline Phosphatase 110 (35-129) units/L Total Protein 8.1 (6.3-8.2) g/dL Albumin 4.0 (3.9-5) g/dL EKG interpretations - Telemetry EKG Rhythm: Sinus Rhythm AV and intraventricular conduction: left bundle branch block Assessment and Plan Lexiscan stress test with nuclear imaging in a.m. Obtain echocardiogram. - Patient Problems (1) Chest pain Current Visit: Yes Status: Acute Qualifiers: Chest pain type: other chest pain Qualified Code(s): R07.89 - Other chest pain; R07.8 - Other chest pain (2) LBBB (left bundle branch block) Current Visit: Yes Status: Acute (3) Degenerative joint disease (DJD) of lumbar spine Current Visit: Yes Status: Chronic
[2021-03-23] MEDS: CYCLOBENZAPRINE 10 MG TAB PO SCH ×2 (18:51→20:18)
--- NOTE | 2021-03-24 02:26 | Event Note ---
Date: 03/23/21 Patient evaluated Patient waiting for echocardiogram and Lexiscan Potential discharge tomorrow
[2021-03-24] MEDS: MORPHINE 4 MG/1 ML INJ IV PRN ×2 (04:37→07:59)
[2021-03-24] MEDS: HEPARIN 5,000 UNIT/1 ML VIAL SUB-Q SCH ×3 (06:16→21:42)
[2021-03-24] MEDS: CYCLOBENZAPRINE 10 MG TAB PO SCH ×3 (08:00→21:42)
[2021-03-24 08:09] LABS: Bilirubin,Urine NEG (Negative); Blood,Urine NEG (Negative); Color,Urine Yellow (Yellow); Protein,Urine <15 mg/dL mg/dL (Negative); RBC,Urine < 1.0 /HPF (0.0-6.0); Urobilinogen,Urine < 2.0 mg/dL (<2.0)
[2021-03-24 08:12] LABS: Amphetamine Screen,Urine Negative; Benzodiazepines Screen,Urine Negative; Cocaine Screen,Urine Negative; Methadone Screen,Urine Negative
[2021-03-24 08:27] LABS: Cannabinoid Screen,Urine Positive; Opiate Screen,Urine Positive
[2021-03-24] MEDS ORDERED: REGADENOSON 0.4 MG/5 ML INJ IV ONE (08:59)
[2021-03-24] MEDS: PANTOPRAZOLE 40 MG TAB PO SCH (10:48)
[2021-03-24] MEDS: CLOPIDOGREL 75 MG TAB PO SCH (10:48)
--- NOTE | 2021-03-24 11:48 | Treadmill Report ---
DATE OF SERVICE: 03/24/2021 NUCLEAR PERFUSION SCAN REFERRING PHYSICIAN: Too Smith MD PROTOCOL: The patient was assessed in postoperative state and given 10 mCi of technetium at rest. The patient had rest imaging. The patient underwent Lexiscan stress test per standard protocol. At peak stress, the patient given 26 mCi technetium. Shortly thereafter, the patient had stress imaging. Raw imaging reveals mild GI artifact, no significant motion artifact. SPECT imaging examined carefully in horizontal long axis, vertical long axis and short axis views. There was normal homogeneous uptake of radioisotope in all port segments. No evidence of a significant fixed or reversible perfusion defect suggestive of prior infarction or ischemia. Gated wall motion reveals normal systolic thickening, calculated ejection-fraction of 60%. No TID. CONCLUSIONS: 1. Normal myocardial perfusion scan without evidence of active ischemia or prior infarction. 2. Normal left ventricular systolic performance without evidence of transient ischemic dilatation or stress-induced segmental wall motion abnormalities. TID: [id number] RECEIPT: [id number] [facility]
[2021-03-24] MEDS: traMADol 50 MG TAB PO PRN (13:25)
--- NOTE | 2021-03-24 14:11 | Progress Note ---
Assessment and Plan Patient with history of lumbar spine DJD with chronic low back pain presented with a complaint over the past two weeks, she has been experiencing intermittent substernal chest tightness as well as soreness. Lexiscan stress MPI 03/24/2021-normal stress without evidence of active ischemia or prior infarction Echo 03/23/2021-EF 55 to 60%, mild diastolic dysfunction is present impaired relaxation pattern. No pericardial effusion right ventricular systolic function is normal Plan: Patient EKG showed no acute ischemic changes. Troponins negative x4. Patient currently chest pain-free Patient had both normal echo and normal stress without evidence of ischemia Patient cardiac status stable. Will sign off Patient has a follow-up with Dr. Velasco, [facility] aviation medicine specialist, on 04/17/2021 at 2:45 PM at our [place] location. Phone #[phone] Patient seen in conjunction with Dr. Welch who agrees with this plan of care - Patient Problems (1) Acute coronary syndrome Current Visit: Yes Status: Acute (2) Acute exacerbation of chronic low back pain Current Visit: Yes Status: Acute (3) Chest pain Current Visit: Yes Status: Acute Qualifiers: Chest pain type: other chest pain Qualified Code(s): R07.89 - Other chest pain; R07.8 - Other chest pain (4) LBBB (left bundle branch block) Current Visit: Yes Status: Acute (5) Degenerative joint disease (DJD) of lumbar spine Current Visit: Yes Status: Chronic (6) Chronic osteoarthritis Current Visit: No Status: Acute Subjective Date of service: 03/24/21 Principal diagnosis: Chest pain Interval history: Patient for stress test this a.m. Objective Vital Signs Temp Pulse Resp BP BP Pulse Ox 03/24/21 12:18 98.9 F 81 19 130/83 95 03/24/21 11:40 25 H 130/83 99 03/24/21 11:30 21 130/83 98 03/24/21 11:20 24 130/83 99 03/24/21 11:10 24 130/83 99 03/24/21 11:00 22 130/83 98 03/24/21 10:50 23 130/83 99 03/24/21 10:40 25 H 130/83 98 03/24/21 10:30 26 H 130/83 98 03/24/21 10:20 22 130/83 100 03/24/21 10:10 78 21 130/83 98 03/24/21 10:02 130/83 100 03/24/21 09:12 126/75 03/24/21 09:11 112/76 03/24/21 09:10 112/73 03/24/21 09:09 108/69 03/24/21 09:08 114/69 03/24/21 09:07 110/68 03/24/21 08:42 134/83 03/24/21 08:29 16 03/24/21 08:17 13 97 03/24/21 08:16 97.9 F 03/24/21 08:00 67 14 130/83 100 03/24/21 07:59 13 03/24/21 07:46 72 13 121/76 99 03/24/21 07:30 59 L 23 121/76 100 03/24/21 07:16 64 19 121/76 100 03/24/21 07:00 69 21 121/76 99 03/24/21 06:46 72 20 121/76 99 03/24/21 06:30 60 25 H 121/76 99 03/24/21 06:16 69 19 153/102 98 03/24/21 06:00 60 27 H 153/102 98 03/24/21 05:46 56 L 22 153/102 98 03/24/21 05:30 57 L 21 153/102 99 03/24/21 05:16 56 L 25 H 153/102 98 03/24/21 05:00 61 15 153/102 100 03/24/21 04:46 69 12 139/88 98 03/24/21 04:30 63 20 127/82 99 03/24/21 04:16 68 20 127/82 99 03/24/21 04:00 69 20 127/82 95 03/24/21 03:46 67 14 127/82 99 03/24/21 03:30 61 23 136/113 100 03/24/21 03:16 60 24 144/74 99 03/24/21 03:00 58 L 23 138/78 99 03/24/21 02:46 57 L 23 122/74 99 03/24/21 02:30 66 23 123/64 100 03/24/21 02:16 60 22 138/73 100 03/24/21 02:00 65 24 131/69 100 03/24/21 01:46 68 24 152/87 100 03/24/21 01:30 57 L 26 H 166/79 100 03/24/21 01:16 58 L 26 H 171/89 100 03/24/21 01:00 53 L 23 153/82 99 03/24/21 00:46 61 25 H 156/88 100 03/24/21 00:30 72 15 147/81 99 03/24/21 00:16 58 L 22 147/81 99 03/24/21 00:00 60 21 137/84 100 03/23/21 23:46 56 L 26 H 147/78 100 03/23/21 23:30 64 23 153/81 100 03/23/21 23:16 83 28 H 151/71 100 03/23/21 23:00 56 L 26 H 142/78 100 03/23/21 22:46 60 27 H 142/75 98 03/23/21 22:30 64 17 147/80 99 03/23/21 22:16 63 18 147/80 99 03/23/21 22:00 64 26 H 139/73 99 03/23/21 21:46 61 24 138/75 100 03/23/21 21:30 61 24 132/77 100 03/23/21 21:15 63 23 145/74 99 03/23/21 21:00 66 28 H 141/76 100 03/23/21 20:46 57 L 28 H 137/80 99 03/23/21 20:30 70 28 H 127/65 98 03/23/21 20:16 67 29 H 127/65 99 03/23/21 20:00 59 L 25 H 151/78 100 03/23/21 19:48 59 L 28 H 132/67 99 03/23/21 19:46 61 30 H 132/67 99 03/23/21 19:30 73 17 128/73 100 03/23/21 19:16 75 21 121/62 100 03/23/21 19:00 84 24 118/57 97 03/23/21 18:46 80 16 126/74 99 03/23/21 18:30 74 18 128/68 99 03/23/21 18:16 76 22 131/76 99 03/23/21 18:00 62 30 H 153/88 100 03/23/21 17:46 69 23 145/88 99 03/23/21 17:30 63 19 138/78 100 03/23/21 17:16 68 22 139/65 100 03/23/21 17:00 82 18 131/59 98 03/23/21 16:45 73 16 125/81 03/23/21 16:30 66 15 124/74 99 03/23/21 16:16 74 21 125/69 99 03/23/21 16:00 69 25 H 125/69 98 03/23/21 15:46 73 17 124/71 99 03/23/21 15:30 72 28 H 130/70 99 03/23/21 15:16 72 25 H 128/68 99 03/23/21 15:12 19 03/23/21 15:00 79 17 126/65 98 03/23/21 14:46 71 11 L 121/84 99 03/23/21 14:30 73 13 64/32 03/23/21 14:16 77 10 L 64/32 - Physical Examination General: No Apparent Distress HEENT: Positive: PERRL Neck: Positive: trachea midline Cardiac: Positive: Reg Rate and Rhythm Lungs: Positive: Normal Breath Sounds Neuro: Positive: Grossly Intact Abdomen: Positive: Soft Skin: Negative: Rash, Suspicious Lesions, Ulceration Extremities: Present: normal, upper extr. pulses - Imaging and Cardiology Echo: report reviewed - Telemetry EKG Rhythm: Sinus Rhythm AV and intraventricular conduction: left bundle branch block
--- NOTE | 2021-03-24 16:23 | Discharge Summary ---
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 Patient apparently has been having worsening back pain since she slipped and fell at a hotel bathtub approximately 3 months ago. Patient has a history of chronic pain with pain management and recently relocated here from [place]. She does not currently have a local physician. In the past she took Percocet 10, MS Contin, and gabapentin 800 mg for her chronic pain. She has not had these medications in several months. She states she is having ambulating secondary to pain and has chronic right leg numbness with weakness from the knee down to the foot which is unchanged and has been recommended for surgery in the past. Patient also states she has occasional urinary incontinence which has been ongoing x1 year.s patient also states that she has anxiety and has been experiencing insomnia recently only sleeping 2 to 3 hours at night. She does not currently have her previously prescribed Cymbalta and has been treated with Xanax in the past. She is unsure of her left-sided chest tightness is secondary to anxiety or cardiac issues. She denies previous history of cardiac disease or stress test in the past. She does smoke cigarettes and her father had an CO at age 60. She denies shortness of breath, nausea, vomiting, or diaphoresis. Patient has a EKG that had some abnormalities without previous EKG for comparison. Troponin is negative in the ED. Patient will be admitted to the hospital for further cardiac work-up. CT lumbar spine does not show evidence of acute injury and patient has chronic unchanged right leg lower deficits 03/24/2021 Patient had EKG echocardiogram and stress test No acute findings Patient to be discharged Disposition: HOME / SELF CARE / HOMELESS Final Discharge Diagnosis (Prints w/discharge instructions): Acute coronary syndrome. Low back pain. Hypertension Time spent for discharge: 35 minutes - Discharge Diagnoses (1) Acute coronary syndrome Status: Acute (2) Acute exacerbation of chronic low back pain Status: Acute (3) DVT prophylaxis Status: Acute Core Measure Documentation - Palliative Care Palliative Care/ Comfort Measures: Not Applicable - Core Measures Any of the following diagnoses?: none Exam - Constitutional Vitals: Temp Pulse Resp BP Pulse Ox 98.9 F 81 19 130/83 97 03/24/21 12:18 03/24/21 12:18 03/24/21 12:18 03/24/21 12:18 03/24/21 14:43 General appearance: Present: no acute distress, well-nourished - EENT Eyes: Present: PERRL ENT: hearing intact, clear oral mucosa - Neck Neck: Present: supple, normal ROM - Respiratory Respiratory effort: normal Respiratory: bilateral: CTA - Cardiovascular Heart rate: 78 Rhythm: regular Heart Sounds: Present: S1 & S2. Absent: rub, click - Extremities Extremities: pulses symmetrical, No edema Peripheral Pulses: within normal limits - Abdominal General gastrointestinal: Present: soft, non-tender, non-distended, normal bowel sounds Female genitourinary: Present: normal - Integumentary Integumentary: Present: clear, warm, dry - Musculoskeletal Musculoskeletal: gait normal, strength equal bilaterally - Psychiatric Psychiatric: appropriate mood/affect, intact judgment & insight - Neurologic Neurologic: CNII-XII intact, moves all extremities Plan Activity: no restrictions Diet: low salt Follow up with: PRIMARY CAREMD [Primary Care Provider] - 7 Days DARIN SAUL MD [Staff Physician] - 7 Days Prescriptions: Zolpidem [Ambien] 10 mg PO QHS PRN #10 tablet PRN Reason: Sleep Duloxetine HCl [Cymbalta] 60 mg PO DAILY #30 Cyclobenzaprine [Flexeril] 10 mg PO TID PRN #90 PRN Reason: Muscle Spasm OXYCODONE hcl [Oxycodone] 15 mg PO BID #20 tablet Albuterol Mdi (or & Nicu Only) [ProAir HFA Inhaler] 2 puff IH QID PRN 30 Days #8.5 gram PRN Reason: Wheezing
[2021-03-24] MEDS ORDERED: traMADol 50 MG TAB PO PRN (16:49)
[2021-03-24] MEDS: GABAPENTIN 400 MG CAP PO SCH (21:42)
[2021-03-25] MEDS ORDERED: ZOLPIDEM 5 MG TAB PO ONE (01:26)
[2021-03-25] MEDS: GABAPENTIN 400 MG CAP PO SCH ×3 (06:46→22:22)
[2021-03-25] MEDS: traMADol 50 MG TAB PO PRN ×3 (06:46→19:16)
[2021-03-25] MEDS: HEPARIN 5,000 UNIT/1 ML VIAL SUB-Q SCH ×3 (06:48→22:22)
[2021-03-25] MEDS: CYCLOBENZAPRINE 10 MG TAB PO SCH ×3 (09:33→22:22)
[2021-03-25] MEDS: CLOPIDOGREL 75 MG TAB PO SCH (09:33)
[2021-03-25] MEDS: PANTOPRAZOLE 40 MG TAB PO SCH (09:34)
[2021-03-25] MEDS ORDERED: NON-FORMULARY EACH (Duloxetine Hcl [Cymbalta] 60 MG Capsule.Dr) PO SCH (10:00)
[2021-03-25] MEDS ORDERED: predniSONE 20 MG TAB PO SCH (10:00)
[2021-03-25] MEDS ORDERED: DULoxetine 30 MG CAP PO SCH (10:00)
[2021-03-25 23:57] VITALS: BP 138/84
--- NOTE | 2021-03-29 20:10 | Electrocardiograph Report ---
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
--- NOTE | 2021-03-29 20:14 | Electrocardiograph Report ---
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 NSSTTW'S LAE POSSIBLE ASMI Prolonged QT interval No previous ECG available for comparison Electronically Signed On 03-29-2021 20:14:28 EST by Dilan Woodruff
== END 2021-03-26 03:11 | disposition home or self-care (01) | DRG 313 ==
LOC: ED 01:55 → 4A 05:22
PROVIDERS: ADMIT Hospitalist; ATTEND Hospitalist
DX: R07.89 Other chest pain (principal); I44.7 Left bundle-branch block, unspecified; M51.26 Other intervertebral disc displacement, lumbar region; F32.A Depression, unspecified; I10 Essential (primary) hypertension; F17.200 Nicotine dependence, unspecified, uncomplicated; F41.9 Anxiety disorder, unspecified; M19.90 Unspecified osteoarthritis, unspecified site; Z88.6 Allergy status to analgesic agent; Z88.0 Allergy status to penicillin; Z88.8 Allergy status to other drugs, medicaments and biological substances; Z82.49 Family history of ischemic heart disease and other diseases of the circulatory system
CPT/HCPCS: 36415; 71045; 72100; 72131; 78452; 80048; 80053; 80307; 81001; 84484; 85025; 93005; 93017; 93306; 99406; G0378; J3490; Q0162; A9502; J1170; J1644; J2270; J2785; J7030; J7512

== ENCOUNTER 2021-07-31 19:33 | Inpatient (IN) | payer MEDICAID, OTHER ==
[~2021-07-31 19:33] MED LIST: D5W/0.45% NACL 1,000 ML IV SCH; NORepinephrine/NS 8 MG-250 ML 8 MG/250 ML INFUS..BTL IV SCH
[2021-07-31] MEDS ORDERED: VASOPRESSIN 20 UNIT in SODIUM CHLORIDE 0.9% 100 ML IV SCH (21:56)
[2021-08-01 01:02] VITALS: BP 148/81
== END 2021-08-01 00:45 | DRG 951 ==
LOC: CC1 19:33 → UNDOADMIN 19:33 → CC1 20:52
DX: Z00.5 Encounter for examination of potential donor of organ and tissue (principal); Z88.0 Allergy status to penicillin; Z88.6 Allergy status to analgesic agent; Z88.8 Allergy status to other drugs, medicaments and biological substances
CPT/HCPCS: G0378; J2354